=== PATIENT | female | born 1985 | race Caucasian/White ===

== ENCOUNTER → 2019-09-21 16:31 | Outpatient (BNVA) | payer BC, SELFPAY | PROVIDERS: Family Provider Internal Medicine; PCP Internal Medicine; Visit Provider Obstetrics & Gynecology | DX: N89.8 Other specified noninflammatory disorders of vagina (principal); E89.41 Symptomatic postprocedural ovarian failure | CPT/HCPCS: 87210 ==

== ENCOUNTER → 2022-05-18 15:45 | Outpatient (BNVA) | payer OTHER, SELFPAY | PROVIDERS: Family Provider Internal Medicine; PCP Internal Medicine; Visit Provider Registered Nurse Neonatal Intensive Care | DX: J02.9 Acute pharyngitis, unspecified (principal); J06.9 Acute upper respiratory infection, unspecified | CPT/HCPCS: 87880 ==

== ENCOUNTER → 2022-05-24 13:59 | Outpatient (BNVA) | payer OTHER, SELFPAY | PROVIDERS: Family Provider Internal Medicine; PCP Family Medicine; Visit Provider Family Medicine | DX: K58.9 Irritable bowel syndrome, unspecified (principal); F41.1 Generalized anxiety disorder; F41.0 Panic disorder [episodic paroxysmal anxiety]; Z76.89 Persons encountering health services in other specified circumstances; F32.9 Major depressive disorder, single episode, unspecified | CPT/HCPCS: 80053; 80061 ==